=== PATIENT | female | born 1950 | race Caucasian/White ===

== ENCOUNTER 2021-05-07 14:23 | Outpatient (REF) | payer MEDICARE, SELFPAY ==
[2021-05-07 16:59] LABS: Erythrocyte Sedimentation Rate 6 MM/HR (0-20)
[2021-05-08 09:02] LABS: Syphilis Screen Nonreactive (Nonreactive)
[2021-05-08 11:02] LABS: Lyme Abs Screen <0.90 index
== END 2021-05-07 14:24 | disposition home or self-care (01) ==
LOC: HO.LAB 14:23
PROVIDERS: PCP Internal Medicine; Visit Provider Psychiatry & Neurology Neurology
DX: I67.9 Cerebrovascular disease, unspecified (principal)
CPT/HCPCS: 36415; 85652; 86617; 86618; 86780